=== PATIENT | male | born 1940 | race Asian ===

== ENCOUNTER 2016-09-25 22:55 | Emergency (ER) | payer OTHER ==
[~2016-09-25] VITALS: Ht 157.5 cm; Wt 56.7 kg
[~2016-09-25 22:55] MED LIST: LOSA100T11 PO; METO50TA7 PO; NOR10 PO
[2016-09-25 23:00] VITALS: BP 164/90; PULSE 75; RESP 18; TEMP 97.2; O2SAT 94
--- NOTE | 2016-09-25 23:00 | NUR ---
BROUGHT BACK TO BED #1 VIA WHEELCHAIR, TRIAGED, REPORT GIVEN TO SILVER
--- NOTE | 2016-09-25 23:01 | NUR ---
PT BIB [facility] VIA WHEELCHAIR C/O OF DIZZINESS THAT STARTED 4 HOURS PRIOR TO ER AND PT DENIES ANY PAIN. PT NOT IN CP DISTRESS.
--- NOTE | 2016-09-25 23:20 | NUR ---
# 20 gauge angiocath placed to RIGHT AC. Use of asceptic technique. Opsite placed over site. Blood return noted. Blood for lab drawn from site. Flushed with 10 cc of normal saline. No evidence of infiltration noted. Patient tolerated well.
--- NOTE | 2016-09-26 00:40 | NUR ---
ER at bedside examining patient.
[2016-09-26] MEDS ORDERED: NACL 0.9% 1,000 ML IV ONE (01:17)
[2016-09-26] MEDS ORDERED: MECLIZINE HCL 25 MG TABLET (ANITVERT) PO ONE (01:30)
[2016-09-26 01:38] LABS: BASOPHILS # (AUTO) 0.1 K/uL (0.0-0.2); BASOPHILS % (AUTO) 0.9 % (0.0-2.0); EOSINOPHILS # (AUTO) 0.3 K/uL (0.0-0.4); EOSINOPHILS % (AUTO) 4.6 % (0.0-4.0); HEMATOCRIT 40.5 % (36-54); HEMOGLOBIN 13.9 g/dL (14.0-18.0); LYMPHOCYTES # (AUTO) 1.8 K/uL (1.0-5.5); LYMPHOCYTES % (AUTO) 28.1 % (20.5-51.5); MEAN CORPUSCULAR HEMOGLOBIN 30 pg (27-31); MEAN CORPUSCULAR HGB CONC 34 % (32-36); MEAN CORPUSCULAR VOLUME 88 fL (79.0-98.0); MONOCYTES # (AUTO) 0.4 K/uL (0.0-1.0); MONOCYTES % (AUTO) 5.8 % (1.7-9.3); NEUTROPHILS # (AUTO) 3.9 K/uL (1.8-7.7); NEUTROPHILS % (AUTO) 60.6 % (40.0-70.0); PLATELET COUNT (AUTO) 230 K/uL (130-430); RED CELL DISTRIBUTION WIDTH 12.6 % (9.0-15.0); WHITE BLOOD COUNT (AUTO) 6.5 K/uL (4.8-10.8)
[2016-09-26 01:44] LABS: INR 0.9 (0.80-1.20); PROTHROMBIN TIME 9.5 SECS (9.5-12.5)
[2016-09-26 01:46] LABS: ANION GAP 9 (5-15); CALCIUM 9.1 mg/dL (8.4-11.0); CHLORIDE 93 mmol/L (98-107); CREATININE 1.39 mg/dL (0.55-1.30); GLUCOSE 166 mg/dL (70-99); POTASSIUM 4.2 mmol/L (3.5-5.1); SODIUM SERUM 130 mmol/L (136-145); UREA NITROGEN, BLOOD 23 mg/dL (8-21)
[2016-09-26 01:47] LABS: ALANINE AMINOTRANSFERASE 35 U/L (12-78); ALBUMIN 4.2 g/dL (3.4-4.8); ASPARTATE AMINOTRANSFERASE 22 U/L (10-37); TOTAL BILIRUBIN 0.2 mg/dL (0.0-1.0); TOTAL PROTEIN, SERUM 8.4 g/dL (6.4-8.3)
[2016-09-26 03:35] VITALS: BP 152/81; PULSE 76; RESP 18; TEMP 97.2; O2SAT 94
--- NOTE | 2016-09-26 03:35 | NUR ---
Patient given written and verbal discharge instructions and verbalizes understanding. ER MD discussed with patient the results and treatment provided. Given copies of tests performed in ER. Patient in stable condition. ID arm band removed. IV catheter removed intact and dressing applied, no active bleeding. Rx of ANTIVERT 25MG given. Patient educated on pain management and to follow up with PMD. Pain Scale 0/10. Opportunity for questions provided and answered.
== END 2016-09-26 03:35 | disposition home or self-care (01) ==
LOC: SED 22:55
DX: E11.65 Type 2 diabetes mellitus with hyperglycemia (principal); N28.9 Disorder of kidney and ureter, unspecified; I10 Essential (primary) hypertension; Z88.1 Allergy status to other antibiotic agents; Z98.890 Other specified postprocedural states
CPT/HCPCS: 36415; 70450; 71010; 80053; 85025; 85610; 85730; 93005; 96360; 96361; 99285; J7030; J8597

== ENCOUNTER 2020-10-16 18:34 | Emergency (ER) | payer OTHER ==
[~2020-10-16] VITALS: Ht 157.5 cm; Wt 63.5 kg
[~2020-10-16 18:34] MED LIST changes: -LOSA100T11 PO; +LOSA100T3 PO
[2020-10-16 18:43] VITALS: BP_SYST 184
[2020-10-16] MEDS ORDERED: NACL 0.9% 1,000 ML IV ONE (20:15)
[2020-10-16 20:33] LABS: BASOPHILS # (AUTO) 0.1 K/uL (0.0-0.2); BASOPHILS % (AUTO) 1.2 % (0.0-2.0); EOSINOPHILS # (AUTO) 0.2 K/uL (0.0-0.4); EOSINOPHILS % (AUTO) 2.7 % (0.0-4.0); HEMATOCRIT 42.6 % (36-54); HEMOGLOBIN 14.3 g/dL (14.0-18.0); LYMPHOCYTES # (AUTO) 1.8 K/uL (1.0-5.5); LYMPHOCYTES % (AUTO) 25.4 % (20.5-51.5); MEAN CORPUSCULAR HEMOGLOBIN 30 pg (27-31); MEAN CORPUSCULAR HGB CONC 34 % (32-36); MEAN CORPUSCULAR VOLUME 89 fL (79.0-98.0); MONOCYTES # (AUTO) 0.4 K/uL (0.0-1.0); MONOCYTES % (AUTO) 6.2 % (1.7-9.3); NEUTROPHILS # (AUTO) 4.6 K/uL (1.8-7.7); NEUTROPHILS % (AUTO) 64.5 % (40.0-70.0); PLATELET COUNT (AUTO) 184 K/uL (130-430); RED BLOOD CELL COUNT(AUTO) 4.77 MIL/uL (4.2-6.2); WHITE BLOOD COUNT (AUTO) 7.1 K/uL (4.8-10.8)
[2020-10-16 20:40] LABS: ANION GAP 8 (5-15); CALCIUM 9.2 mg/dL (8.4-11.0); CHLORIDE 99 mmol/L (98-107); GLUCOSE 106 mg/dL (70-99); POTASSIUM 5.2 mmol/L (3.5-5.1); SODIUM SERUM 136 mmol/L (136-145); UREA NITROGEN, BLOOD 37 mg/dL (8-21)
[2020-10-16 20:41] LABS: CREATININE 2.73 mg/dL (0.55-1.30)
[2020-10-16 20:43] LABS: TOTAL BILIRUBIN 0.2 mg/dL (0.0-1.0)
[2020-10-16 20:45] LABS: ALANINE AMINOTRANSFERASE 49 U/L (12-78); ALBUMIN 3.7 g/dL (3.4-4.8); ASPARTATE AMINOTRANSFERASE 33 U/L (10-37)
[2020-10-16 20:56] LABS: C-REACTIVE PROTEIN QUANT < 0.2 mg/dL (0-0.5)
[2020-10-16 21:10] LABS: BILIRUBIN,URINE NEGATIVE (NEGATIVE); CLARITY/URINE CLEAR (CLEAR); COLOR,URINE YELLOW (YELLOW); GLUCOSE,URINE NEGATIVE (NEGATIVE); KETONES,URINE NEGATIVE (NEGATIVE); LEUKOCYTE ESTERASE ,URINE NEGATIVE (NEGATIVE); NITRITE, URINE NEGATIVE (NEGATIVE); PROTEIN URINE 2+ (NEGATIVE); UROBILINOGEN,URINE 0.2 (0.2-1.0)
[2020-10-16 21:14] LABS: CKMB RELATIVE INDEX 1.2 (0.0-2.9); CREATINE KINASE MB 4.6 ng/mL (0-3.6)
[2020-10-16 21:18] LABS: BLOOD, URINE TRACE (NEGATIVE)
[2020-10-16 21:30] LABS: BACTERIA,URINE None Seen /HPF (None Seen); MUCUS,URINE None Seen /LPF (None Seen); RBC,URINE NONE SEEN /HPF (0-3); WBC,URINE NONE SEEN /HPF (0-3)
[2020-10-16] MEDS ORDERED: hydrALAZINE HCL 20 MG/ML VIAL IVP ONE (21:30)
[2020-10-16 22:13] VITALS: BP_SYST 174
[2020-10-16 22:13] LABS: ERYTHROCYTE SEDIMENTATION RATE 18 MM/HR (0-15)
== END 2020-10-16 22:13 | disposition home or self-care (01) ==
LOC: SED 18:34
DX: E11.29 Type 2 diabetes mellitus with other diabetic kidney complication (principal); N28.9 Disorder of kidney and ureter, unspecified; I10 Essential (primary) hypertension; M79.652 Pain in left thigh; M79.651 Pain in right thigh; F12.90 Cannabis use, unspecified, uncomplicated; Z88.1 Allergy status to other antibiotic agents
CPT/HCPCS: 36415; 71045; 80053; 81000; 82550; 82553; 82962; 84484; 85025; 85379; 85651; 86140; 93005; 96361; 96374; 99285; J0360; J7030